=== PATIENT | female | born 1965 | race Caucasian/White ===

== ENCOUNTER 2022-01-19 13:19 | Emergency (ER) | payer OTHER, SELFPAY ==
--- NOTE | ~2022-01-19 | XR_ITS ---
EXAMINATION: XR CHEST CLINICAL INFORMATION: Chest pain. COMPARISON: 01/03/2019 chest radiographs. TECHNIQUE: 2 views of the chest were obtained. FINDINGS: No significant abnormality is noted involving the heart, lungs, mediastinum, bony thorax or soft tissues. XR/XR chest 2V IMPRESSION: No acute cardiopulmonary process.
[2022-01-19 14:01] VITALS: BP 147/92; PULSE 86; RESP 22; TEMP 36.3; O2SAT 100; BMI 32.7
--- NOTE | 2022-01-19 14:05 | ECG_ITS ---
Test Reason : CHEST TIGHTNESS Blood Pressure : / mmHG Vent. Rate : 078 BPM Atrial Rate : 078 BPM P-R Int : 130 ms QRS Dur : 078 ms QT Int : 372 ms P-R-T Axes : 034 -28 038 degrees QTc Int : 424 ms Normal sinus rhythm Minimal voltage criteria for LVH, may be normal variant ( R in aVL ) RSR' or QR pattern in V1 suggests right ventricular conduction delay Left axis deviation Abnormal ECG No previous ECGs available Referred By: Generic ED Physician Electronically Signed By:LAKESHIA LEHMAN MD
[2022-01-19 14:20] LABS: MANUAL DIFF FLAG NO
[2022-01-19 14:23] LABS: Basophils Percent Auto 0.6 % (0-2); Eosinophils Absolute Auto 0.2 X10*3/uL (0.0-0.4); Eosinophils Percent Auto 2.4 % (0-4); Hematocrit 42.6 % (37.0-47.0); Imm Gran Abs Auto 0.02 X10*3/uL (0.00-0.03); Imm Gran Pct Auto 0.3 % (0.0-0.4); Lymphocytes Absolute Auto 1.5 X10*3/uL (1.2-4.9); Lymphocytes Percent Auto 23.8 % (20-40); Mean Corpuscular HGB Conc 30.5 g/dl (31.0-35.0); Mean Corpuscular Hemoglobin 21.3 pg (27.0-33.0); Mean Platelet Volume 10.2 fL (9.4-12.3); Monocytes Absolute Auto 0.5 X10*3/uL (0.1-1.2); Monocytes Percent Auto 7.6 % (2-11); Neutrophils Absolute Auto 4.1 x10*3/uL (2.0-8.3); Neutrophils Percent Auto 65.3 % (45-73); Platelet Count 243 X10*3/uL (160-400); Red Blood Count 6.09 X10*6/uL (4.20-5.50); Red Cell Distribution Width 15.8 % (11.0-16.0); White Blood Count 6.3 X10*3/uL (4.8-10.8)
[2022-01-19 14:38] LABS: Alanine Aminotransferase 22 U/L (0-31); Albumin Level 4.6 g/dL (3.5-5.0); Alkaline Phosphatase 100 U/L (39-117); Anion Gap 14 (12-20); Aspartate Amino Transferase 18 U/L (5-31); Bilirubin Direct 0.2 mg/dL (0.0-0.5); Bilirubin Total 0.4 mg/dL (0.0-1.0); Blood Urea Nitrogen 10 mg/dL (9-16); Calcium 9.8 mg/dL (8.4-10.2); Carbon Dioxide 25 mmol/L (22-29); Chloride 105 mmol/L (96-108); Creatinine Clr Calc Pharmacy 78.5; Estimated Glomerular Filt Rate > 60; Glucose Random 105 mg/dL (60-115); Lipase 43 U/L (8-78); Potassium 4.4 mmol/L (3.3-5.1); Sodium 140 mmol/L (135-145); Total Protein 7.4 g/dL (6.5-8.0)
[2022-01-19 14:44] LABS: Troponin-I High Sensitivity < 3.5 ng/L (<3.5-17.0)
--- NOTE | 2022-01-19 20:53 | ED_ITS ---
HPI - Chest Pain General Chief Complaint: Chest Pain Stated Complaint: Chest Discomfort Effects of COVID Time Seen by Provider: 01/19/22 20:52 Source: patient Mode of arrival: ambulatory Limitations: no limitations History of Present Illness HPI narrative: 56 yo female no sig PMH but hasn't really been to her doctor since the pandemic started. Vaccinated for COVID. Was dx with COVID around 12/29 has continued to t est positive, for the past week or so has had intermittent continuous reproducible chest pain with some left arm pain as well. Pain is worse at times and this has never happened before. MD complaint: chest pain Onset (ago): week(s) (last several days) Timing of current episode: constant Prior episodes: No Onset: during rest Pain location: substernal Pain radiation: left arm Severity: moderate Quality: tightness, aching and sharp Relieving factors: nothing Exacerbating factors: palpation and movement Context: recent illness (COVID 19 + tests for almost all of December) Associated symptoms: dyspnea Treatment prior to arrival: none Related Data Home Medications Medication Instructions Recorded Confirmed ibuprofen 800 mg tablet 800 mg PO QID 10/09/20 10/09/20 Previous Rx's Medication Instructions Recorded promethazine 25 mg tablet 25 mg PO BID PRN nausea and 05/05/20 vomiting 30 days #45 tabs prednisone 20 mg tablet 60 mg PO DAILY 6 days #18 tabs 10/10/20 amoxicillin 875 mg-potassium 1 tab PO BID 10 days #20 tabs 11/03/20 clavulanate 125 mg tablet (Augmentin) cyclobenzaprine 10 mg tablet 10 mg PO TID PRN muscle spasm #14 01/19/22 tabs ibuprofen 600 mg tablet 600 mg PO Q6H PRN pain #30 tabs 01/19/22 Allergies Allergy/AdvReac Type Severity Reaction Status Date / Time pollen extracts Allergy Unknown Unknown Verified 10/09/20 14:14 Review of Systems Review of Systems: Constitutional : No Weight loss, No Fever, No Chills ENT/Mouth : No sore throat, No Rhinorrhea Eyes: No Eye Pain, No Swelling Cardiovascular : pos Chest Pain, pos SOB, no Dyspnea on Exertion, No Orthopnea, No Edema, No Palpitations Respiratory : No Cough, No Sputum Gastrointestinal : no Nausea, No Vomiting, No Diarrhea, No abdominal Pain, No Hematochezia, No Melena Genitourinary : No Dysuria, No Urinary Frequency Musculoskeletal : No joint pain, No Myalgias, No Joint Swelling Skin : No Skin Lesions, No rash Neuro : No Weakness, No Numbness, No Dizziness, No Headache Psych : No Anxiety/Panic, No Depression Heme/Lymph: No Bruising, No Lymphadenopathy Endocrine : No Polyuria, No Polydipsia All other systems reviewed and are negative [facility] Past Medical History Attestation statement: The following information was validated with the patient. Medical History Ear discomfort Obese Surgical History History of section History of oral surgery History of removal of cyst IUD (intrauterine device) in place Family History Family History Father Stroke Mother No problems noted. Maternal Grandmother No problems noted. Maternal Grandfather No problems noted. Paternal Grandmother Diabetes Paternal Grandfather Diabetes Paternal Uncle Cancer Son No problems noted. Daughter No problems noted. Daughter No problems noted. Brother No problems noted. Social History Social History (Updated 01/19/22 @ 20:54 by Mavis Pearl DO) Alcohol intake: current Alcohol intake frequency: holidays/special occasions only Patient Tobacco Use Status: Never used Tobacco Advance Directives: No Advance Directives Information Provided: No Physical Exam Vital Signs: Vital Signs: Last Vital Signs Temp 97.4 F 01/19/22 14:01 Pulse 86 01/19/22 14:01 Resp 22 H 01/19/22 14:01 BP 147/92 H 01/19/22 14:01 Pulse Ox 100 01/19/22 14:01 O2 Del Method 01/19/22 14:01 BMI result Body Mass Index 32.7 Appearance: Alert. Oriented X3. No acute distress. Eyes: Pupils equal, round and reactive to light. ENT: Pharynx normal. Neck: Normal inspection. Neck supple. CVS: Normal heart rate and rhythm. Pulses normal. Chest: ttp along costochondral border reproduces pain Respiratory: No respiratory distress. Breath sounds normal. Abdomen: Soft and non-tender. Skin: Skin warm and dry. Normal skin color. Normal skin turgor. Extremities: No lower extremity edema. No calf ttp Neuro: Oriented X 3. No motor deficit. No sensory deficit. Procedures Procedure Narrative Procedure Narrative: bedside limited ECHO apical and parasternal no pericardial effusion noted MDM - Chest Pain MDM Narrative Medical decision making narrative: 56 yo femael with no sig PMH here with c/o reproduceable cp x several days s/p COVID. At this time EKG is nonischemic, CXR no COVID pneumonia, no effusion seen on bedside US - PE unlikely. Suspect costochondritis. Dispo per per ddimer. Doubt ACS/myocarditis with negative trop and several days of symptoms Lab Data Result diagrams: 01/19/22 14:15 01/19/22 14:15 Labs: Lab Results 01/19/22 01/19/22 01/19/22 Range/Units 14:15 14:15 14:15 WBC 6.3 (4.8-10.8) X10*3/uL RBC 6.09 H (4.20-5.50) X10*6/uL Hgb 13.0 (12.0-16.0) g/dl Hct 42.6 (37.0-47.0) % MCV 70.0 L (80.0-98.0) fL MCH 21.3 L (27.0-33.0) pg MCHC 30.5 L (31.0-35.0) g/dl RDW 15.8 (11.0-16.0) % Plt Count 243 (160-400) X10*3/uL MPV 10.2 (9.4-12.3) fL Immature Gran % (Auto) 0.3 (0.0-0.4) % Neut % (Auto) 65.3 (45-73) % Lymph % (Auto) 23.8 (20-40) % Levy % (Auto) 7.6 (2-11) % Eos % (Auto) 2.4 (0-4) % Baso % (Auto) 0.6 (0-2) % Lymph # (Auto) 1.5 (1.2-4.9) X10*3/uL Levy # (Auto) 0.5 (0.1-1.2) X10*3/uL Eos # (Auto) 0.2 (0.0-0.4) X10*3/uL Baso # (Auto) 0.0 (0.0-0.2) X10*3/uL Abs Immat Gran (auto) 0.02 (0.00-0.03) X10*3/uL Absolute Neuts (auto) 4.1 (2.0-8.3) x10*3/uL Absolute Nucleated RBC 0.000 (0.0-0.012) X10*3/uL Nucleated RBC % (auto) 0.0 (0.0-0.2) /100WBC Sodium 140 (135-145) mmol/L Potassium 4.4 (3.3-5.1) mmol/L Chloride 105 (96-108) mmol/L Carbon Dioxide 25 (22-29) mmol/L Anion Gap 14 (12-20) BUN 10 (9-16) mg/dL Creatinine 0.79 (0.5-1.4) mg/dL Estim Creat Clear Calc 78.5 Estimated GFR > 60 Random Glucose 105 (60-115) mg/dL Calcium 9.8 (8.4-10.2) mg/dL Total Bilirubin 0.4 (0.0-1.0) mg/dL Direct Bilirubin 0.2 (0.0-0.5) mg/dL AST 18 (5-31) U/L ALT 22 (0-31) U/L Alkaline Phosphatase 100 (39-117) U/L Troponin I High Sens < 3.5 (<3.5-17.0) ng/L Total Protein 7.4 (6.5-8.0) g/dL Albumin 4.6 (3.5-5.0) g/dL Lipase 43 (8-78) U/L ECG Data ECG #1: Attestation: I personally reviewed and interpreted this ECG as follows: ECG interpretation date: 01/19/22 ECG interpretation time: 20:54 Interpretation: Rate: 78 Rhythm: NSR Pyrites: left, LVH Normal P waves. Normal ROGER. Normal QRS complex. ST T wave : normal no HOLLIE qTC: normal prior studies: no acute ischemia The study has been interpreted contemporaneously by me. . Discharge Plan Discharge Clinical Impression: Acute costochondritis Patient Disposition: Home, Self-Care Instructions: Chest Pain (ED), Costochondritis (ED) Additional Instructions: return to ED for any worsening symptoms or concerns EKG, heart test - troponin negative ddimer negative bedside US shows no fluid around the heart TECHNIQUE: 2 views of the chest were obtained. FINDINGS: No significant abnormality is noted involving the heart, lungs, mediastinum, bony thorax or soft tissues. XR/XR chest 2V IMPRESSION: No acute cardiopulmonary process. Prescriptions: New cyclobenzaprine 10 mg tablet 10 mg PO TID PRN (Reason: muscle spasm) Qty: 14 0RF ibuprofen 600 mg tablet 600 mg PO Q6H PRN (Reason: pain) Qty: 30 0RF No Action prednisone 20 mg tablet 60 mg PO DAILY 6 Days Qty: 18 0RF amoxicillin-pot clavulanate [Augmentin] 875-125 mg tablet 1 tab PO BID 10 Days Qty: 20 0RF promethazine 25 mg tablet 25 mg PO BID PRN (Reason: nausea and vomiting) 30 Days Qty: 45 1RF ibuprofen 800 mg tablet 800 mg PO QID Referrals: Carin Biggs MD [Primary Care Provider] - 3 days (if not better) Stand Alone Forms: Work/School Release
[2022-01-19 21:30] LABS: D Dimer High Sensitivity < 150 NG/ML
== END 2022-01-19 21:49 | disposition home or self-care (01) ==
PROVIDERS: Emergency Provider Emergency Medicine; PCP Internal Medicine
DX: R07.89 Other chest pain (principal); M94.0 Chondrocostal junction syndrome [Tietze]; Z79.899 Other long term (current) drug therapy
CPT/HCPCS: 36415; 71046; 80048; 80076; 83690; 84484; 85025; 85379; 93005; 99283

== ENCOUNTER 2022-01-27 11:38 | Outpatient (REF) | payer OTHER, SELFPAY ==
--- NOTE | ~2022-01-27 | US_ITS ---
EXAMINATION: US VENOUS ULTRASOUND WITH DOPPLER LOWER EXTREMITY, BILATERAL CLINICAL INFORMATION: Bilateral lower extremity pain. COMPARISON: None TECHNIQUE: Ultrasound of the deep veins is performed from the hip to the calf with compression sonography and color and pulse Doppler assessment. Spectral analysis with color-flow imaging is performed. FINDINGS: RIGHT: There is normal venous compression and respiratory variation and augmented flow. The visualized common femoral vein, superficial femoral vein, profunda femoral vein, popliteal vein, and the trifurcation region shows no evidence of deep venous thrombosis. There is no significant popliteal fossa cyst. LEFT: There is normal venous compression and respiratory variation and augmented flow. The visualized common femoral vein, superficial femoral vein, profunda femoral vein, popliteal vein, and the trifurcation region shows no evidence of deep venous thrombosis. There is no significant popliteal fossa cyst. If the patient's symptoms persist, followup ultrasound in 5 days 7 days might be of value to exclude proximal propagation from a non-visualized calf vein. US/US venous duplex LE BI IMPRESSION: No DVT demonstrated in the bilateral lower extremities.
== END 2022-01-27 11:39 | disposition home or self-care (01) ==
LOC: HO.US 11:38
PROVIDERS: Visit Provider Internal Medicine
DX: M79.606 Pain in leg, unspecified (principal)
CPT/HCPCS: 93970

== ENCOUNTER → 2022-02-01 09:05 | Outpatient (REF) | payer OTHER, SELFPAY ==
--- NOTE | 2022-02-01 09:11 | CA_ITS ---
Acquisition Time: 2022-02-01 09:21:48 Total Exercise Time: 00:06:45 Test Indications: CP Medications: SEE CHART Protocol: ALICIA Max HR: 157 BPM 95% of Pred: 164 BPM Max BP: 182/080 mmHG Max Work Load: 8.1 METS Exercise stress test with exercise 6 min 45 sec of Alicia protocol, achieving > 90% MPHR, with report of a mild discomfort to left of lower sternal border, no sob, without arrythmia, with normotensive response to exercise, without EKG changes meeting criteria for ischemia. In recovery she states her discomfort resolved. Test reviewed with Dr Hinojosa. Message sent to PCP with report. Stress echo can be ordered if further eval for ischemia is needed. Referred By: Carin Darling Overread By: MARIA ALEJANDRA VITALE
== END ==
LOC: HO.CARD 09:05
PROVIDERS: Visit Provider Internal Medicine
DX: R07.9 Chest pain, unspecified (principal)
CPT/HCPCS: 93017

== ENCOUNTER 2022-02-04 07:25 | Outpatient (REF) | payer OTHER, SELFPAY ==
--- NOTE | ~2022-02-04 | MR_ITS ---
EXAMINATION: MR BRAIN WITHOUT CONTRAST. CLINICAL INFORMATION: 56-year-old with amnesia COMPARISON: None TECHNIQUE: Multiplanar multisequence MR imaging of the brain was done without IV contrast. FINDINGS: Brain Volume: Within normal limits within the limitations of qualitative assessment. Structural: Partially empty sella, which is a normal variant. Brain and Meninges: DWI sequence demonstrates no restricted diffusion to suggest acute or subacute cerebral ischemia. The brain is normal in morphology. There is a 3 mm nonspecific deep white matter T2 hyperintensity in the right parietal lobe. A gradient refocused imaging demonstrates no abnormal magnetic susceptibility artifact to suggest hemorrhage, hemosiderin staining or abnormal mineralization. No extra-axial fluid collections, space-occupying process or mass effect are identified. Tiny FLAIR signal hyperintensities in the right external capsule and adjacent putamen are likely artifacts as these are not seen on the corresponding axial T2-weighted images. Ventricles and Subarachnoid Spaces: The ventricular system and subarachnoid spaces are within normal limits without hydrocephalus. Orbital Structures: There is an ovoid shape to both globes which is nonspecific but could be secondary to myopia. Correlate with clinical history. Vascular: Signal voids are noted in the visualized major intracranial vessels. Osseous Structures, Sinuses/Mastoids, Extracranial Soft Tissues: Unremarkable MR/MR head/brain wo con IMPRESSION: 1. Nonspecific 3 mm white matter T2 hyperintensity in the right parietal lobe of indeterminate significance. 2. No acute intracranial process. No evidence for hemorrhage, infarction, space-occupying process, mass effect or hydrocephalus.
== END 2022-02-04 07:26 | disposition home or self-care (01) ==
LOC: HO.MRI 07:25
PROVIDERS: Visit Provider Internal Medicine
DX: R41.3 Other amnesia (principal)
CPT/HCPCS: 70551

== ENCOUNTER → 2022-02-17 10:36 | Outpatient (BNVA) | payer OTHER, SELFPAY | PROVIDERS: PCP Internal Medicine; Referring Provider Internal Medicine; Visit Provider Internal Medicine Cardiovascular Disease | DX: R07.9 Chest pain, unspecified (principal) | CPT/HCPCS: 93005 ==

== ENCOUNTER 2022-07-14 08:00 | Outpatient (REF) | payer OTHER, SELFPAY ==
--- NOTE | ~2022-07-14 | MM_ITS ---
EXAMINATION: MM SCREENING DIGITAL BREAST TOMOSYNTHESIS, BILATERAL CLINICAL INFORMATION: Screening. Asymptomatic. The lifetime risk of breast cancer based on the Tyrer-Cuzick Model is 6.8%. COMPARISON: Mammography: None TECHNIQUE: Digital breast tomosynthesis is performed in both the craniocaudal and mediolateral oblique views along with computer-aided detection (CAD). Synthesized 2D images are generated from the tomosynthesis. FINDINGS: There are scattered areas of fibroglandular density (ACR BI-RADS breast composition Category b). On craniocaudal view of the right breast about the deep lateral aspect, there is a 1.2 x 0.8 cm density approximately 11 cm from the nipple from which spot compression view is recommended. Within the deep lateral aspect of the left breast, there is an irregular density present measuring approximately 1 cm in diameter about 9 cm from the nipple. Recommend spot compression view in craniocaudal view. MM/MM tomosynthesis screening BI IMPRESSION: Bilateral breast densities for further evaluation. ASSESSMENT: BI-RADS 0: Incomplete - Need Additional Imaging Evaluation RECOMMENDATION: 1. Additional views of the bilateral breasts 2. Targeted ultrasound if warranted after review of the additional views. 3. Radiology department staff will contact the patient for additional imaging. This patient's information was entered into a reminder system with a target due date for their next mammogram.
== END 2022-07-14 08:01 | disposition home or self-care (01) ==
LOC: HO.MAMMO 08:00
PROVIDERS: PCP Internal Medicine; Visit Provider Internal Medicine
DX: Z12.31 Encounter for screening mammogram for malignant neoplasm of breast (principal)
CPT/HCPCS: 77063; 77067

== ENCOUNTER 2023-06-01 14:20 | Outpatient (AMB) | payer OTHER, SELFPAY ==
--- NOTE | 2023-06-01 14:35 | A.OFFPC_ITS ---
Vital Signs 06/01/23 14:36 Height 5 ft 2 in Weight 184 lb BMI 33.7 BP 136/90 H Blood Pressure Location Lt brachial Position Sitting Intake Visit Reasons: PE Intake Note: Patient here for a physical exam Professional [employer] Required: No Accompanied by: Self / Same As Patient Allergies pollen extracts Allergy (Unknown, Verified 06/01/23 14:51) Unknown Medication List - Last Reconciled 06/01/23 by Carin Darling MD No Known Home Meds Tobacco use date assessed: 06/01/23 Dental Screening Dental Screen Date: 06/01/23 Did you have a dental visit in the last 12 months?: Yes Did you have a dental problem in the last 6 months where you did not have access to dental care?: No Was dental information given to patient?: Patient has dentist HPI HPI Comments History of Present Illness Details Is a 57-year-old female that comes for her physical exam. Mammogram done 2022 and have another mammogram scheduled for 2023. She has never had a colonoscopy and mother has colon cancer at 75 years old. I did refer her through open access. Last Pap smear was 2018 and she will call for another appointment. No chest pain or shortness of breath. Has right ear discomfort and was seen by ENT which place a local cream that resolve the problem but thinning came back. [facility] Medical History Ear discomfort Obese Surgical History IUD (intrauterine device) in place History of oral surgery History of removal of cyst History of section Family History Father Stroke Mother Colon cancer Maternal Grandmother No problems noted. Maternal Grandfather No problems noted. Paternal Grandmother Diabetes Paternal Grandfather Diabetes Paternal Uncle Cancer Son No problems noted. Daughter No problems noted. Daughter No problems noted. Brother No problems noted. Social History Housing: House Alcohol intake: current Alcohol intake frequency: holidays/special occasions only Alcohol type: wine Patient Tobacco Use Status: Never used Tobacco e-Cigarette/Vaping Use: Never Used Second Hand Smoke Exposure: No service: No Current occupational status: employed Current occupational exposures/hazards: No Cognitive needs: No Hearing needs: No Vision needs: No Questionnaire PHQ-9 Over the last 2 weeks, how often have you been bothered by any of the following problems? 1. Little interest or pleasure in doing things: not at all 2. Feeling down, depressed, or hopeless: not at all 3. Trouble falling or staying asleep, or sleeping too much: not at all 4. Feeling tired or having little energy: not at all 5. Poor appetite or overeating: not at all 6. Feeling bad about yourself - or that you are a failure or have let yourself or your family down: not at all 7. Trouble concentrating on things, such as reading the newspaper or watching television: not at all 8. Moving or speaking so slowly that other people could have noticed. Or the opposite - being so fidgety or restless that you have been moving around a lot more than usual: not at all 9. Thoughts that you would be better off or of hurting yourself in some way: not at all Total score: 0 Depression Screening Interpretation: Negative Depression Screening Done: Yes 26317 - PHQ-9 Billing: Yes Source: Developed by Drs. Gael Hunt, Sunita Chandra, Peter Cassidy and colleagues, with an educational arcadio from [employer]. Thrive Questionnaire Date Thrive assessed: 06/01/23 I am a: Patient What is your living situation today?: I have a steady place to live Within the past 12 months, did the food you bought not last and you didn't have the money to get more?: Never true Within the past 12 months, did you worry whether your food would run out before you got money to buy more?: Never true Do you have trouble paying for medicines?: No Do you have trouble getting transportation to medical appointments?: No Do you have trouble paying your heating and electricity bill?: No Do you have trouble taking care of your child, family member or friend?: No Do you have trouble with day-to-day activities such as bathing, preparing meals, shopping, managing finances, etc.?: No Are you currently unemployed and looking for a job?: No Are you interested in more education?: No Please select the resources that you would like help with: None Currently or been in a relationship where the following occur: no concerns reported THRIVE Score: 0 AUDIT C Alcohol Use Questionnaire (AUDIT-C) 1. How often do you have a drink containing alcohol?: Monthly or less 2. How many drinks containing alcohol do you have on a typical day when you are drinking?: 1 or 2 3. How often do you have six or more drinks on one occasion?: Never Total Score: 1 Score Reviewed/Action Taken: No SETH-7 AMB Questionnaire SETH-7 Date SETH - 7 assessed: 06/01/23 Feeling nervous, anxious, or on edge: 1 = Several days Not being able to stop or control worryin = Not at all Worrying too much about different things: 1 = Several days Trouble relaxin = Not at all Being so restless that it is hard to sit still: 0 = Not at all Becoming easily annoyed or irritable: 0 = Not at all Feeling afraid as if something awful might happen: 0 = Not at all Total SETH-7 score (0-4 normal; 5-9 mild; 10-14 moderate; 15-21 severe): 2 Source: Developed by Drs. Gael Hunt, Sunita Chandra, Peter Cassidy and colleagues, with an educational arcadio from [employer]. SETH-7 Assessment Billing SETH-7 Assessment Tool: SETH-7 Assessment 23470 Review of Systems Const All systems reviewed & are unremarkable except as noted in HPI and below Eyes Reports no additional complaints, Denies change in vision and Denies other visual disturbances Card Denies chest pain at rest, Denies chest pain with activity, Denies edema, Denies irregular heart rhythm, Denies claudication, Denies dyspnea, Denies dyspnea on exertion, Denies orthopnea, Denies paroxysmal nocturnal dyspnea and Denies slow heart rate Resp Denies cough, Denies dyspnea and Denies dyspnea on exertion GI Denies abdominal pain, Denies change in bowel habits, Denies excessive flatus, Denies nausea and Denies vomiting Denies urinary incontinence, Denies urinary hesitancy and Denies urinary urgency Musc Denies abnormal gait, Denies atrophy, Denies deformity and Denies limited range of motion Skin/Breast Denies bleeding lesions, Denies changing lesions and Denies rash Neuro Denies abnormal gait, Denies behavioral changes, Denies confusion and Denies lack of coordination Psych Denies behavioral changes and Denies confusion Physical exam (Primary Care) Vital Signs: Last Vital Signs BP 136/90 H 06/01/23 14:36 BMI result Body Mass Index 33.7 Tobacco/Smoking Status: Tobacco use Status Tobacco use date assessed 06/01/23 06/01/23 14:44 Patient Tobacco Use Status Never used Tobacco 06/01/23 14:44 e-Cigarette/Vaping Use Never Used 06/01/23 14:44 PHQ-9: PHQ-9 Score PHQ-9: Total score 0 06/01/23 14:44 Depression Screening Interpretation: Negative Thrive Assessment: Date of Thrive Assessment Date Thrive assessed 06/01/23 06/01/23 14:44 Currently or been in a relationship where the following occur: no concerns reported Const General: No confusion Orientation/consciousness: patient oriented x3 and No confusion HENMT Head: Yes normal to inspection, Yes normocephalic and Yes atraumatic Ears: external ears normal Eyes General: appearance normal, both eyes and all related structures Eyelids: Yes eyelids normal Conjunctivae: conjunctivae normal Neck Neck: Yes normal visual inspection and Yes supple Resp Effort & Inspection: normal respiratory effort Auscultation: clear to auscultation bilaterally Cardio Jugular venous distension: no JVD Rate: regular rate Rhythm: regular rhythm Heart sounds: S1 normal heart sound present and S2 normal heart sound present GI Inspection: Yes normal to inspection Palpation (GI): Soft to palpation and nontender Auscultation: normal bowel sounds Skin General skin exam: no rashes or lesions noted Neuro General: patient oriented x3, no focal motor deficits and No confusion Extrem General: Yes full ROM Psych Appearance: grossly normal Assessment and Plan Assessment & Plan (1) Physical exam: Code(s): Z00.00 - Encounter for general adult medical examination without abnormal findings Plan: Repeat in a year. Orders: Orders Lipid Panel Today E78.5 - Hyperlipidemia, unspecified, Z00.00 - Encounter for general adult medical examination without abnormal findings Comprehensive [place]. Panel Fast Today Z00.00 - Encounter for general adult medical examination without abnormal findings Referrals Open Access Screening Colonoscopy Referral Z12.11 - Encounter for screening for malignant neoplasm of colon Medications: New fluocinolone acetonide oil 0.01% (DermOtic Oil) 5 drps otic (ear) left BID 20 mL 0RF 7 days Coding Level of Care Code Est Pt Prev Care 40-64y(21790) Diagnoses Physical exam Z00.00 Additional Codes SETH-7 Assessment Billing - SETH-7 Assessment Tool: SETH-7 Assessment 09849 ([id number]) Time Spent (min) 32
[2023-06-01 14:36] VITALS: BP 136/90; BMI 33.7
== END 2023-06-01 15:12 | disposition home or self-care (01) ==
PROVIDERS: Visit Provider Internal Medicine
DX: Z00.00 Encounter for general adult medical examination without abnormal findings (principal)
CPT/HCPCS: 99396

== ENCOUNTER 2024-07-19 01:36 | Emergency (ER) | payer OTHER, SELFPAY ==
[2024-07-19 01:39] VITALS: BP 148/91; PULSE 80; RESP 16; TEMP 36.6; O2SAT 95; BMI 34.4
[2024-07-19 02:13] LABS: IDNOW Serial# 6674DD1D; Strep A Nucleic Acid Negative (Negative)
[2024-07-19 02:34] LABS: Influenza A PCR NEGATIVE (Negative); Influenza B PCR NEGATIVE (Negative); Resp Syncy Virus RNA Qual PCR NEGATIVE (Negative); SARS COV2 PCR INHOUSE NEGATIVE (Negative)
[2024-07-19 05:26] VITALS: BP 130/74; PULSE 75; RESP 24; TEMP 36.8; O2SAT 99
--- NOTE | 2024-07-19 05:40 | PC.NURSE ---
pt given food and drink at this time, pt tolerated well with no nausea or vomiting. pt reports bilateral ear pain, per , put verbal order in for 600mg ibuprofen.
--- NOTE | 2024-07-19 05:51 | ED_ITS ---
HPI - Ear Problem General Chief complaint: Ear Problems Stated complaint: Burning Sensation Throat Ears Vomiting Time Seen by Provider: 07/19/24 05:02 Source: patient and family Mode of arrival: ambulatory Limitations: no limitations History of Present Illness ED Provider: DR. Mayfield HPI Narrative: 58-year-old female came in for evaluation of upper respiratory symptoms for the past 3 days, feels burning sensation in both ears and throat, no difficulty breathing, no difficulty swallowing, patient had family gathering on yesterday at her house unknown if she was exposed to sick contacts. Patient started to have coughing this morning and vomiting after the coughing fits. No abdominal pain, no nausea, no vomiting. Related Data Previous Rx's ?Medication ?Instructions ?Recorded fluocinolone acetonide oil 0.01 % 5 drp otic (ear) left BID 7 days 06/01/23 ear drops (DermOtic Oil) #20 mL Allergies Allergy/AdvReac Type Severity Reaction Status Date / Time pollen extracts Allergy Unknown Unknown Verified 07/19/24 01:41 Review of Systems Review of Systems: All other systems are reviewed and are negative Constitutional: Reports as per HPI and Reports no additional constitutional complaints Eyes: Reports as per HPI and Reports no additional eye complaints Reports system reviewed and no additional complaints, except as documented Cardiovascular: Reports as per HPI and Reports no additional cardiovascular complaints Respiratory: Reports as per HPI and Reports no additional respiratory complaints Gastrointestinal: Reports as per HPI and Reports no additional gastrointestinal complaints Genitourinary: Reports no additional female genitourinary complaints Musculoskeletal: Reports no additional musculoskeletal complaints Skin/Breast: Reports system reviewed and no additional complaints, except as docu Psychiatric: Reports no additional psychiatric complaints Endocrine: Reports no additional endocrine complaints Hematologic/Lymphatic: Reports no additional hematologic/lymphatic complaints Allergic/Immunologic: Reports no additional allergic/immunologic complaints Reports system reviewed and no additional complaints, except as documented and Reports Abnormal speech present FORMERLY [facility], [facility] Past Medical History Medical History Ear discomfort Obese Surgical History IUD (intrauterine device) in place History of oral surgery History of removal of cyst History of section Family History Family History Father Stroke Mother Colon cancer Maternal Grandmother No problems noted. Maternal Grandfather No problems noted. Paternal Grandmother Diabetes Paternal Grandfather Diabetes Paternal Uncle Cancer Son No problems noted. Daughter No problems noted. Daughter No problems noted. Brother No problems noted. Social History Social History Housing: House Alcohol intake: current Alcohol intake frequency: holidays/special occasions only Alcohol type: wine Patient Tobacco Use Status: Never used Tobacco e-Cigarette/Vaping Use: Never Used Second Hand Smoke Exposure: No Advance Directives: No Advance Directives Information Provided: No Do you have a plan to hurt others: No Plan service: No Current occupational status: employed Current occupational exposures/hazards: No Cognitive needs: No Hearing needs: No Vision needs: No Physical Exam Vital Signs: Vital Signs: Last Vital Signs Temp 98.2 F 07/19/24 05:26 Pulse 75 07/19/24 05:26 Resp 24 H 07/19/24 05:26 BP 130/74 07/19/24 05:26 Pulse Ox 99 07/19/24 05:26 O2 Del Method Room Air 07/19/24 05:26 BMI result Body Mass Index 34.4 Vital signs have been reviewed and appear to be correct. Blood pressure elevated. Heart rate normal. Respiratory rate normal. Temperature normal. Oxygen saturation normal. Appearance: Alert. Oriented X3. No acute distress. Head: Normal external exam. Normocephalic. Atraumatic. No Martínez signs noted. No raccoon eyes noted Eyes: PERRLA. EOMI. Conjunctiva and sclera normal. Eyelids normal. ENT: TM's Normal. Pharynx normal. Uvula midline. Moist mucous membranes. No trismus noted. No drooling noted. No muffled voice noted. Neck: Normal inspection. Neck supple. FROM. No adenopathy. Thyroid Normal. No meningeal signs. No neck mass noted. CVS: Normal heart rate and rhythm. Heart sound normal. No murmurs noted. Pulses normal throughout. Respiratory: No respiratory distress. Painless inspiration. Breath sounds normal. No wheezes/rales/rhonchi noted. Chest nontender. No accessory muscle usage noted or decreased air movement noted. Abdomen: Soft and nontender. Bowel sounds normal in all 4 quadrants. No distention noted. No organomegaly noted. No visible injury noted. Back: No CVA tenderness. Full range of motion noted. Skin: Skin warm and dry. Normal skin color. Normal skin turgor. No rashes/lesions/lacerations noted. Extremities: No lower extremity edema. Extremities exhibit normal range of motion. Extremities nontender. Neuro: Oriented X 3. Cranial nerve exam: II-XII are grossly intact No motor deficit. No sensory deficit. Reflexes normal. Course Reevaluation(s) Reevaluation #1: Upper respiratory symptoms. Improvement of nausea no vomiting, no abdominal pain, able to tolerate p.o. intake. Negative strep pharyngitis, negative upper respiratory viral panel. Time: 05:54 Medical Decision Making Differential Diagnosis Differential Diagnoses: The differential diagnosis associated with the presenta tion includes ( Viral syndrome, strep pharyngitis, viral pharyngitis, otitis media, Viral upper respiratory infection.) Admission/Observation Consideration of admission/observation: Escalation of care including admission/observation considered Lab Data MDM Lab Attestation statement: I reviewed the patient's lab results. Labs: Lab Results 07/19/24 Range/Units 01:53 Influenza Type A (PCR) NEGATIVE (Negative) Influenza Type B (PCR) NEGATIVE (Negative) RSV RNA Qual (PCR) NEGATIVE (Negative) SARS-CoV-2 RNA (RT-PCR) NEGATIVE (Negative) S. pyogenes GrpA POLINA Negative (Negative) Discharge Plan Discharge Clinical Impression: Acute viral syndrome Patient Disposition: Home, Self-Care Instructions: Viral Syndrome (ED) Additional Instructions: drink plenty of fluids, take dnpe-rtm-sfelwhl ibuprofen 200 mg every 6 hours if needed for pain. Make an appointment with your primary doctor in 2 days. Prescriptions: No Action fluocinolone acetonide oil [DermOtic Oil] 0.01 % drops 5 drp otic (ear) left BID 7 Days Qty: 20 0RF Referrals: Carin Biggs MD [Primary Care Provider] - Print Language: [place]
[2024-07-19] MEDS: Ibuprofen 600 MG TABLET PO (05:52)
[2024-07-19 06:23] VITALS: BP 130/74; PULSE 75; RESP 24; TEMP 36.8; O2SAT 99
== END 2024-07-19 06:48 | disposition home or self-care (01) ==
PROVIDERS: Emergency Provider Emergency Medicine; PCP Internal Medicine
DX: B34.9 Viral infection, unspecified (principal); Z03.818 Encounter for observation for suspected exposure to other biological agents ruled out; R05.9 Cough, unspecified; J02.9 Acute pharyngitis, unspecified
CPT/HCPCS: 0241U; 87651; 99283; 99284

== ENCOUNTER 2024-07-23 11:38 | Outpatient (AMB) | payer OTHER, SELFPAY ==
--- NOTE | 2024-07-23 12:02 | AM.OFFVISNUR ---
Intake Visit Reasons: EP SOB, vomiting phlegm,ears Allergies pollen extracts Allergy (Unknown, Verified 07/19/24 01:41) Unknown Nursing Note Pt came into the [place] c/o sore throat, generalized body aches, ear discomfort and shortness of breath x last Tuesday. A/O x 3. Pt speaks in full sentences. Lungs - diminished. Pt has productive/congested cough (white phlegm). VS 98% on room air- 76. CERTIFIED NEURODIAGNOSTIC TECHNOLOGIST - Kisha and [facility] ([facility]) aware. Pt returned to the waiting room. Coding
[2024-07-23 12:58] VITALS: BP 128/80; PULSE 68; TEMP 36.6; O2SAT 97; BMI 35.1
--- NOTE | 2024-07-23 12:58 | AM.OFFWIN_ITS ---
Intake Vital Signs 07/23/24 12:58 Height 5 ft 1 in Weight 186 lb BMI 35.1 BP 128/80 Blood Pressure Location Lt brachial Position Sitting Pulse 68 Pulse Source Pulse Oximeter Temp 98 F Temp Source Oral Pulse Oximetry (%) 97 Oxygen Delivery Method Room Air Intake Visit Reasons: EP SOB, vomiting phlegm,ears Intake Note: Patient here for SOB, vomiting, bilat ear pain, body aches and congestion that has been present since Tuesday. Patient Tobacco Use Status: Never used Tobacco Allergies pollen extracts Allergy (Unknown, Verified 07/23/24 13:06) Unknown Do you need a note to return to daycare/school/sports/work: Yes HPI HPI Comments History of Present Illness Details 58 y/o Female patient who presents to [facility] walk in clinic with c/o Cough, Chest congestion, SOB, sinus pressure and body aches Tuesday. She was seen and evaluated at [facility] 07/19 and diagnosed with Viral syndrome. SARs was negative and Vitals/PE unremarkable. Today Patient frustrated that nobody wants to give her Abx and she knows she needs one to get better. Reports using OTC medicines with no relief. Reports coughs keep her up at night - productive cough with large Green mucous. Reports subjective fevers at home and body chills. Reports taking Acetaminophen and Ibuprofen with some relief. [facility] Medical History (Updated 07/23/24 @ 13:34 by Drea Will NP) Cough Ear discomfort Obese Surgical History IUD (intrauterine device) in place History of oral surgery History of removal of cyst History of section Family History Father Stroke Mother Colon cancer Maternal Grandmother No problems noted. Maternal Grandfather No problems noted. Paternal Grandmother Diabetes Paternal Grandfather Diabetes Paternal Uncle Cancer Son No problems noted. Daughter No problems noted. Daughter No problems noted. Brother No problems noted. Social History Housing: House Alcohol intake: current Alcohol intake frequency: holidays/special occasions only Alcohol type: wine Patient Tobacco Use Status: Never used Tobacco e-Cigarette/Vaping Use: Never Used Second Hand Smoke Exposure: No service: No Current occupational status: employed Current occupational exposures/hazards: No Cognitive needs: No Hearing needs: No Vision needs: No Review of Systems Const All systems reviewed & are unremarkable except as noted in HPI and below Physical Exam Vital Signs: Last Vital Signs Temp 98 F 07/23/24 12:58 Pulse 68 07/23/24 12:58 BP 128/80 07/23/24 12:58 Pulse Ox 97 07/23/24 12:58 Oxygen Delivery Method Room Air 07/23/24 12:58 BMI result Body Mass Index 35.1 Const General: no acute distress Nutritional Appearance: obese Orientation/consciousness: patient oriented x3 HEENT Head: Yes normocephalic Ears: external ears normal and TM abnormal bulging and with fluid behind the TM bilateral General nose exam: Normal external nose present and Nasal discharge present Face and sinus: Yes sinuses nontender Mouth: moist mucous membranes and Abnormal oral and palatal mucosa present erythematous; no hematomas and no white patches Throat: Yes uvula midline Resp Effort & Inspection: normal respiratory effort, able to speak in complete sentences and Actively coughing Auscultation: clear to auscultation bilaterally, no crackles, no rales, no rhonchi and no wheezes Cardio Heart sounds: S1 normal heart sound present and S2 normal heart sound present Neuro General: patient oriented x3 Psych Speech and movement: Normal speech and movement present Affect: Anxious affect present Assessment & Plan Assessment & Plan (1) Cough: Code(s): R05.9 - Cough, unspecified Qualifiers: Cough type: subacute Qualified Code(s): R05.2 - Subacute cough Plan: Advised Patient that this could still be Viral infection and Abx are ineffective at this time. Pt insists on getting Abx today. Warned her against taking Abx. PE and Vitals unremarkable. Medications: New azithromycin 500 mg PO DAILY 3 days 3 tabs 0RF R05.2 - Subacute cough benzonatate 200 mg (2 x 100 mg) PO BID 60 caps 0RF R05.2 - Subacute cough dextromethorphan polistirex ER (Delsym 12 hour) 10 mL PO Q12H 89 mL 0RF cough R05.2 - Subacute cough Coding Level of Care Code Est Pt Level 4 (41181) Diagnoses Subacute cough R05.2 Cough type: subacute Time Spent (min) 20
== END 2024-07-23 13:40 | disposition home or self-care (01) ==
PROVIDERS: PCP Internal Medicine; Visit Provider Nurse Practitioner Family
DX: R05.2 Subacute cough (principal)

== ENCOUNTER → 2024-07-23 11:38 | Outpatient (BNVA) | payer OTHER, SELFPAY | PROVIDERS: PCP Internal Medicine; Visit Provider Nurse Practitioner Family ==

== ENCOUNTER 2024-08-02 15:18 | Outpatient (AMB) | payer OTHER, SELFPAY ==
[2024-08-02 15:28] VITALS: BP 128/86; BMI 34.6
--- NOTE | 2024-08-02 15:28 | A.OFFPC_ITS ---
Vital Signs 08/02/24 15:28 Height 5 ft 1 in Weight 183 lb BMI 34.6 BP 128/86 Blood Pressure Location Lt brachial Position Sitting Intake Visit Reasons: PE Intake Note: Patient here for a physical exam Cardiac Cath Technician Required: No Accompanied by: Self / Same As Patient Allergies pollen extracts Allergy (Unknown, Verified 08/02/24 15:34) Unknown Medication List - Last Reconciled 08/02/24 by Carin Darling MD benzonatate 200 mg (2 x 100 mg) PO BID dextromethorphan polistirex ER (Delsym 12 hour) 10 mL PO Q12H Tobacco use date assessed: 08/02/24 Dental Screening Dental Screen Date: 08/02/24 Did you have a dental visit in the last 12 months?: Yes Did you have a dental problem in the last 6 months where you did not have access to dental care?: No Was dental information given to patient?: Patient has dentist HPI HPI Comments History of Present Illness Details The patient is a 58-year-old female presenting for a physical examination and health maintenance. Her immunization record shows a Tdap vaccine five years prior, with no current records available at this visit. She has not undergone a colonoscopy despite her significant family history of colon cancer, specifically in her mother at age 75. While she refuses a colonoscopy, she has agreed to take part in the Cologuard screening. The patient had a mammogram in 2022, with plans for another to be scheduled, and her last Pap smear was performed in 2019, needing referral and update. The patient presents with Class 1 obesity, marked by a BMI of 34.6, and is aiming through diet and exercise to lower her BMI to under 30. She denies experiencing depression but reports mild anxiety, correlating it with her mother's current critical condition. She does not report chest pain or shortness of breath and generally feels well in health. She is currently not on medicat ions, and laboratory tests will be arranged for additional assessment. She has a skin lesion in thigh which is dry and scaly and will be referred to Dermatology. Denies any bleeding or pruritus from the lesion. Lesion has 2 different colors and is increasing in size. [facility] Medical History (Updated 08/02/24 @ 15:57 by Carin Darling MD) Cough Ear discomfort Obese Surgical History IUD (intrauterine device) in place History of oral surgery History of removal of cyst History of section Family History (Updated 08/02/24 @ 15:44 by Carin Darling MD) Father Stroke Mother Colon cancer, Onset Age: 75 Maternal Grandmother No problems noted. Maternal Grandfather No problems noted. Paternal Grandmother Diabetes Paternal Grandfather Diabetes Paternal Uncle Cancer Son No problems noted. Daughter No problems noted. Daughter No problems noted. Brother No problems noted. Social History Housing: House Alcohol intake: current Alcohol intake frequency: holidays/special occasions only Alcohol type: wine Patient Tobacco Use Status: Never used Tobacco e-Cigarette/Vaping Use: Never Used Second Hand Smoke Exposure: No service: No Current occupational status: employed Current occupational exposures/hazards: No Cognitive needs: No Hearing needs: No Vision needs: No Questionnaire PHQ-9 Over the last 2 weeks, how often have you been bothered by any of the following problems? 1. Little interest or pleasure in doing things: not at all 2. Feeling down, depressed, or hopeless: not at all 3. Trouble falling or staying asleep, or sleeping too much: not at all 4. Feeling tired or having little energy: not at all 5. Poor appetite or overeating: not at all 6. Feeling bad about yourself - or that you are a failure or have let yourself or your family down: not at all 7. Trouble concentrating on things, such as reading the newspaper or watching television: not at all 8. Moving or speaking so slowly that other people could have noticed. Or the opposite - being so fidgety or restless that you have been moving around a lot more than usual: not at all 9. Thoughts that you would be better off or of hurting yourself in some way: not at all Total score: 0 Depression Screening Interpretation: Negative Depression Screening Done: Yes 94689 - PHQ-9 Billing: Yes Source: Developed by Drs. Gael Hunt, Sunita Chandra, Peter Cassidy and colleagues, with an educational arcadio from [employer]. Thrive Questionnaire Date Thrive assessed: 08/02/24 I am a: Patient What is your living situation today?: I have a steady place to live Within the past 12 months, did the food you bought not last and you didn't have the money to get more?: Never true Within the past 12 months, did you worry whether your food would run out before you got money to buy more?: Never true Do you have trouble paying for medicines?: No Do you have trouble getting transportation to medical appointments?: No Do you have trouble paying your heating and electricity bill?: No Do you have trouble taking care of your child, family member or friend?: No Do you have trouble with day-to-day activities such as bathing, preparing meals, shopping, managing finances, etc.?: No Are you currently unemployed and looking for a job?: No Are you interested in more education?: No Please select the resources that you would like help with: None Currently or been in a relationship where the following occur: I choose not to answer THRIVE Score: 0 AUDIT C Alcohol Use Questionnaire (AUDIT-C) 1. How often do you have a drink containing alcohol?: Monthly or less 2. How many drinks containing alcohol do you have on a typical day when you are drinking?: 1 or 2 3. How often do you have six or more drinks on one occasion?: Never Total Score: 1 Score Reviewed/Action Taken: No SETH-7 AMB Questionnaire SETH-7 Date SETH - 7 assessed: 08/02/24 Feeling nervous, anxious, or on edge: 0 = Not at all Not being able to stop or control worryin = Several days Worrying too much about different things: 1 = Several days Trouble relaxin = Several days Being so restless that it is hard to sit still: 0 = Not at all Becoming easily annoyed or irritable: 0 = Not at all Feeling afraid as if something awful might happen: 0 = Not at all Total SETH-7 score (0-4 normal; 5-9 mild; 10-14 moderate; 15-21 severe): 3 Source: Developed by Drs. Gael Hunt, Sunita Chandra, Peter Cassidy and colleagues, with an educational arcadio from [employer]. SETH-7 Assessment Billing SETH-7 Assessment Tool: SETH-7 Assessment 82868 Review of Systems Const All systems reviewed & are unremarkable except as noted in HPI and below Card Denies chest pain at rest, Denies chest pain with activity, Denies edema, Denies irregular heart rhythm, Denies claudication, Denies dyspnea, Denies dyspnea on exertion, Denies orthopnea, Denies paroxysmal nocturnal dyspnea and Denies slow heart rate Resp Denies cough, Denies dyspnea and Denies dyspnea on exertion GI Denies abdominal pain, Denies change in bowel habits, Denies excessive flatus, Denies nausea and Denies vomiting Denies urinary incontinence, Denies urinary hesitancy and Denies urinary urgency Musc Denies atrophy, Denies deformity and Denies limited range of motion Skin/Breast Denies bleeding lesions, Denies changing lesions and Denies rash Physical exam (Primary Care) Vital Signs: Last Vital Signs BP 128/86 08/02/24 15:28 BMI result Body Mass Index 34.6 BMI Assessment/Plan discussion: High BMI High, discussed plan: lifestyle, weight reduction, dietary and physical activity Tobacco/Smoking Status: Tobacco use Status Tobacco use date assessed 08/02/24 08/02/24 15:35 Patient Tobacco Use Status Never used Tobacco 08/02/24 15:35 e-Cigarette/Vaping Use Never Used 08/02/24 15:35 PHQ-9: PHQ-9 Score PHQ-9: Total score 0 08/02/24 15:35 Depression Screening Interpretation: Negative Thrive Assessment: Date of Thrive Assessment Date Thrive assessed 08/02/24 08/02/24 15:35 Currently or been in a relationship where the following occur: I choose not to answer [facility] Head: Yes normal to inspection, Yes normocephalic and Yes atraumatic Ears: external ears normal Eyes General: appearance normal, both eyes and all related structures Eyelids: Yes eyelids normal Conjunctivae: conjunctivae normal Neck Neck: Yes normal visual inspection and Yes supple Resp Effort & Inspection: normal respiratory effort Auscultation: clear to auscultation bilaterally Cardio Jugular venous distension: no JVD Rate: regular rate Rhythm: regular rhythm Heart sounds: S1 normal heart sound present and S2 normal heart sound present GI Inspection: Yes normal to inspection Palpation (GI): Soft to palpation and nontender Auscultation: normal bowel sounds Skin General skin exam: no rashes or lesions noted Neuro General: no focal motor deficits Extrem General: Yes full ROM Psych Appearance: grossly normal Coding Level of Care Code Est Pt Level 3 (60415) Est Pt Prev Care 40-64y(17823) Diagnoses Physical exam Z00.00 Skin lesion L98.9 Class 1 obesity with body mass index (BMI) of 34.0 to 34.9 in adult E66.811; Z68.34 Additional Codes SETH-7 Assessment Billing - SETH-7 Assessment Tool: SETH-7 Assessment 31651 ([id number]) PHQ-9 - 81742 - PHQ-9 Billing: Yes ([id number]) Time Spent (min) 31 Assessment & Plan Assessment & Plan (1) Physical exam: Code(s): Z00.00 - Encounter for general adult medical examination without abnormal findings Category: Medical (2) Skin lesion: Code(s): L98.9 - Disorder of the skin and subcutaneous tissue, unspecified Category: Medical (3) Class 1 obesity with body mass index (BMI) of 34.0 to 34.9 in adult: Code(s): E66.811 - Obesity, class 1; Z68.34 - Body mass index [BMI] 34.0-34.9, adult Category: Medical Plan We've scheduled a mammogram following her last one in 2022, and a referral will be made for her Pap smear, last performed in 2019. Blood work will evaluate her general health status. While she reports mild anxiety likely related to her mother's illness, no pharmaceutical interventions are necessary at this time. All other results are pending Patient was informed and verbally consented to the use of an ambient scribe for clinic note documentation during this visit. I discussed the various aspects of her health maintenance and addressed her concerns about cancer screening given her family history. Understanding her hesitancy towards colonoscopy, I proposed the Cologuard test as an effective and non-invasive alternative, and she agreed. For her weight, we reviewed the objectives of a reduced BMI through dietary and physical changes, acknowledging her BMI is currently 34.6. We also arranged for a mammogram and planned for a Pap referral, asserting the importance of these screenings. Regarding her mild anxiety, we explored its connection to her mother's condition and reassured her about ongoing support without medication. Follow-up blood work will also assist in guidance for maintaining optimal health. Orders: Orders Comprehensive [place]. Panel Fast Today Z00.00 - Encounter for general adult medical examination without abnormal findings Thyroid Stimulating Hormone Today E66.811 - Obesity, class 1, Z68.34 - Body mass index [BMI] 34.0-34.9, adult Vitamin D 25-OH Total Today E55.9 - Vitamin D deficiency, unspecified MM tomosynthesis screening BI Today Z12.31 - Encounter for screening mammogram for malignant neoplasm of breast Lipid Panel Today E78.5 - Hyperlipidemia, unspecified, Z00.00 - Encounter for general adult medical examination without abnormal findings Vitamin B12 and Folate Today E53.8 - Deficiency of other specified B group vitamins Referrals Dermatology Referral L98.9 - Disorder of the skin and subcutaneous tissue, unspecified [employer] Referral Z12.4 - Encounter for screening for malignant neoplasm of cervix Cologuard Test Z12.11 - Encounter for screening for malignant neoplasm of colon, Z12.12 - Encounter for screening for malignant neoplasm of rectum Medications: New naltrexone 50 mg PO DAILY 90 tabs 0RF 90 days E66.811 - Obesity, class 1, Z68.34 - Body mass index [BMI] 34.0-34.9, adult bupropion HCl XL 150 mg PO QAM 90 tabs 0RF 90 days E66.811 - Obesity, class 1, Z68.34 - Body mass index [BMI] 34.0-34.9, adult Patient Instructions: - Complete the Cologuard test as discussed. - Order and schedule a mammogram. - Follow up on the Pap smear referral. - Continue with advised diet and exercise to lower BMI. - Monitor your emotional wellbeing, seek support if needed. - Await further instructions following lab results.
== END 2024-08-02 15:59 | disposition home or self-care (01) ==
LOC: HO.HMCH 15:19
PROVIDERS: PCP Internal Medicine; Visit Provider Internal Medicine
DX: Z00.00 Encounter for general adult medical examination without abnormal findings (principal); L98.9 Disorder of the skin and subcutaneous tissue, unspecified; E66.811 Obesity, class 1; Z68.34 Body mass index [BMI] 34.0-34.9, adult

== ENCOUNTER → 2024-08-02 15:18 | Outpatient (BNVA) | payer OTHER, SELFPAY | PROVIDERS: PCP Internal Medicine; Visit Provider Internal Medicine | DX: Z00.00 Encounter for general adult medical examination without abnormal findings (principal); L98.9 Disorder of the skin and subcutaneous tissue, unspecified; E66.811 Obesity, class 1; Z68.34 Body mass index [BMI] 34.0-34.9, adult | CPT/HCPCS: 96127 ==

== ENCOUNTER 2024-10-12 16:10 | Outpatient (REF) | payer OTHER, SELFPAY | END 2024-10-12 16:11 | disposition home or self-care (01) | LOC: HO.MAMMO 16:10 | PROVIDERS: PCP Internal Medicine; Visit Provider Internal Medicine | DX: Z12.31 Encounter for screening mammogram for malignant neoplasm of breast (principal) | CPT/HCPCS: 77063; 77067 ==

== ENCOUNTER → 2024-10-12 16:30 | Outpatient (BNV) | payer OTHER, SELFPAY | PROVIDERS: PCP Internal Medicine; Visit Provider Radiology Body Imaging | DX: Z12.31 Encounter for screening mammogram for malignant neoplasm of breast (principal) | CPT/HCPCS: 77063; 77067 ==